=== PATIENT | female | born 1940 | race Caucasian/White ===

== ENCOUNTER 2019-11-25 11:54 | Emergency (ER) | payer MEDICARE, OTHER ==
[2019-11-25] MEDS ORDERED: Ondansetron ODT 4 MG TAB ONE (12:06)
[2019-11-25] MEDS ORDERED: HYDROcodone/Acetaminophen 5/325 mg Tablet ONE (12:06)
[2019-11-25] MEDS ORDERED: Ketorolac Tromethamine 30 MG/ML VIAL ONE (12:06)
--- NOTE | 2019-11-25 12:26 | RAD ---
EXAM: XR Lumbar Spine 2 Or 3 View PROVIDED CLINICAL HISTORY: Right lower back pain. COMPARISON: None FINDINGS: There are 5 nonrib-bearing lumbar-type vertebral bodies. Multilevel osteophytes are present. Grade 1 anterolisthesis of L4 on L5 is present measuring approximately 4 mm. The vertebral body heights are within normal limits. Facet degenerative changes are seen involving the lower lumbar spine. No fractu re is seen. Multiple calcifications overlie the left upper quadrant likely related to splenic granulomata with a few punctate calcification also overlying the right upper quadrant which may represent hepatic granulomata. Phleboliths and vascular calcifications overlie the pelvis. Vascular calcification are s een in the abdominal aorta and involving the iliac arteries. IMPRESSION: Degenerative changes lumbar spine with grade 1 anterolisthesis of L4 and L5.
--- NOTE | 2019-11-25 12:35 | RAD ---
EXAM: XR Pelvis AP STANDARD PROVIDED CLINICAL HISTORY: Right lower back pain. COMPARISON: None FINDINGS: No fracture or dislocation is visualized on this AP view of the pelvis. Phleboliths and vascular calc ifications overlie the pelvis. IMPRESSION: No acute osseous abnormality. If pain is localized to either hip, dedicated views of that hip are rec ommended.
[2019-11-25] MEDS ORDERED: Morphine 4 MG/ML VIAL ONE (12:53)
== END 2019-11-25 13:05 | disposition home or self-care (01) ==
LOC: NAV ERS 11:54
DX: M62.830 Muscle spasm of back (principal); M54.5 Low back pain; Z86.73 Personal history of transient ischemic attack (TIA), and cerebral infarction without residual deficits; Z79.82 Long term (current) use of aspirin; Z79.899 Other long term (current) drug therapy
CPT/HCPCS: 72100; 72170; 96372; J1885; J2270; Q0162